=== PATIENT | female | born 1960 | race Caucasian/White ===

== ENCOUNTER 2024-02-21 15:46 | Emergency (ER) | payer MEDICARE, MEDICAID, SELFPAY ==
[2024-02-21 16:16] VITALS: BP 118/56; PULSE 72; RESP 16; TEMP 37.1; O2SAT 97
--- NOTE | 2024-02-21 17:16 | ED.GENADULT ---
HPI - General Adult General Chief complaint: Extremity Problem,Nontraumatic Stated complaint: Right leg injury Time Seen by Provider: 02/21/24 17:16 Source: patient, RN notes reviewed and old records reviewed Mode of arrival: ambulatory Limitations: no limitations History of Present Illness HPI narrative: [facility] with slow but steady gait. 63-year-old female to [facility] with complaint right knee pain with acute onset. Patient lying comfortably in supine position sleeping on exam table when provider entered room. Patient sat and reports severe right knee pain. Patient states that she was sitting in [employer] prior to arrival when she stood up and had acute onset of right knee pain. Patient denies injury, surgical history, bleeding or clotting disorders, numbness, tingling. Patient calm and appears tired in exam room. Patient in no acute distress. Related Data Home Medications Medication Instructions Recorded Confirmed amlodipine 5 mg tablet mg 02/21/24 atorvastatin 20 mg tablet mg 02/21/24 clonazepam 0.5 mg tablet mg 02/21/24 duloxetine 30 mg capsule,delayed mg PO 02/21/24 release levothyroxine 100 mcg tablet mcg 02/21/24 lithium carbonate 300 mg capsule mg 02/21/24 mirabegron 25 mg tablet,extended mg PO 02/21/24 release 24 hr (Myrbetriq) olanzapine 20 mg tablet mg 02/21/24 oxybutynin chloride 5 mg mg PO 02/21/24 tablet,extended release 24 hr paliperidone palmitate 156 mg/mL mg IM 02/21/24 intramuscular syringe (Invega Sustenna) paroxetine HCl 20 mg tablet mg PO 02/21/24 propranolol 10 mg tablet mg 02/21/24 risperidone 1 mg tablet mg 02/21/24 Allergies Allergy/AdvReac Type Severity Reaction Status Date / Time No Known Allergies Allergy Verified 02/21/24 16:13 Review of Systems Review of Systems: All systems reviewed & are unremarkable except as noted in HPI and below Constitutional: Constitutional: Reports no additional constitutional complaints Eyes: Eyes: Reports no additional eye complaints ENT: Reports system reviewed and no additional complaints, except as documented Cardiovascular: Cardiovascular: Reports no additional cardiovascular complaints, Denies chest pain and Denies dyspnea Respiratory: Respiratory: Reports no additional respiratory complaints, Denies cough and Denies dyspnea Musculoskeletal: Musculoskeletal: Reports no additional musculoskeletal complaints Neurologic: Reports system reviewed and no additional complaints, except as documented Psychiatric: Psychiatric: Reports no additional psychiatric complaints PMFSH Comments At the time of my signature, I reviewed and agree with the nursing past medical, surgical, social, and family history. There is no relevant family history pertinent to the patient complaint. Exam Const: General: cooperative, healthy appearing, comfortable, no acute distress, alert and well nourished Nutritional Appearance: well nourished Orientation/consciousness: patient oriented x3 Limitations: no limitations HENMT: Head: normal to inspection Ears: external ears normal Face/Nose/Sinus: Normal external nose present, Normal nares present, normal facial exam, No erythema and No edema Face and sinus: normal facial exam, no erythema and no edema Mouth: Yes Normal oral and palatal mucosa present Eyes: General: appearance normal, both eyes and all related structures Neck: Neck: normal visual inspection, full ROM and no meningeal signs Lymphatic: no lymphadenopathy noted and no lymphedema noted Chest: Chest palpation & inspection: normal inspection of the chest Resp: Effort & Inspection: normal respiratory effort and able to speak in complete sentences Auscultation: clear to auscultation bilaterally Cardio: Jugular venous distension: no JVD Rate: regular rate Rhythm: regular rhythm Back/Spine/Pelvis: Cervical Spine: cervical ROM normal Skin: General skin exam: normal color, no ra
== END 2024-02-21 17:49 | disposition home or self-care (01) ==
PROVIDERS: Emergency Provider Nurse Practitioner Family; PCP Internal Medicine
DX: M25.561 Pain in right knee (principal)
CPT/HCPCS: 99212; G0463